=== PATIENT | female | born 1955 | race Caucasian/White ===

== ENCOUNTER → 2017-02-20 | Outpatient (CLI) | payer BC ==
--- NOTE | 2017-02-20 14:37 | MM ---
Reason for exam: screening (asymptomatic). Last mammogram was performed 1 year and 8 months ago. History: Patient is postmenopausal. Physical Findings: A clinical breast exam by your physician is recommended on an annual basis and results should be correlated with mammographic findings. MG Screening Mammo w CAD Bilateral CC and MLO view(s) were taken. Prior study comparison: July 02, 2015, bilateral MG screening mammo w CAD. November 27, 2011, bilateral digital screening mammo w/CAD. The breast tissue is heterogeneously dense. This may lower the sensitivity of mammography. There is no discrete abnormality. No significant changes when compared with prior studies. ASSESSMENT: Negative, BI-RAD 1 RECOMMENDATION: Routine screening mammogram of both breasts in 1 year.
== END | disposition home or self-care (01) ==
LOC: RADMAMWWP 07:57
PROVIDERS: ATTEND Family Medicine
DX: Z12.31 Encounter for screening mammogram for malignant neoplasm of breast (principal)

== ENCOUNTER → 2019-01-07 | Outpatient (CLI) | payer BC ==
[2019-01-07 10:17] VITALS: BP 135/82; PULSE 68; RESP 16; TEMP 98.1; BMI 22.7
--- NOTE | 2019-01-07 12:04 | P.HPOB ---
History of Present Illness H&P Date: 01/07/19 Chief Complaint: Follow-up for 2 Pap smears done in the past 3 months. This is a 63-year-old with an LMP of 2005. The patient states she was sent by Dr. Mccall's office regarding to Pap smears that were done in the last 2 to 3 months. She states she was called back after the 1st one and another Pap smear was done. She was then sent here for follow-up. She is not sure if the Pap smears were inadequate or abnormal. She is without gynecologic complaints and denies any postmenopausal bleeding. Review of Systems The patient's weight has been stable over the last year. Her weight can fluctuate by plus or minus 5 pounds typically. She denies respiratory, cardiac, or G.I. problems. Past Medical History Past Medical History: No Reported History Additional Past Medical History / Comment(s): PAST [employer] HISTORY: She has no history of STDs. History of Any Multi-Drug Resistant Organisms: None Reported Past Surgical History: Section Additional Past Surgical History / Comment(s): times 2. Past Psychological History: No Psychological Hx Reported Smoking Status: Former smoker Additional Drug Use History / Comment(s): Quit smoking in 1983. She has been since 1975. 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 - Past Family History Father Family Medical History: Eye Disorder Additional Family Medical History / Comment(s): Macular degeneration. Mother Additional Family Medical History / Comment(s): Macular degeneration. Son(s) Family Medical History: Cancer Additional Family Medical History / Comment(s): Testicular cancer. Medications and Allergies Home Medications Medication Instructions Recorded Confirmed Type Multivitamin [Multivitamins Adult 1 each PO 01/07/19 History Gummies] Allergies Allergy/AdvReac Type Severity Reaction Status Date / Time No Known Allergies Allergy Unverified 01/07/19 10:13 Exam Vital Signs Temp Pulse Resp BP Pulse Ox 01/07/19 10:14 98.1 F 68 16 135/82 100 Intake and Output 01/06/19 01/07/19 01/07/19 22:59 06:59 14:59 Other: Weight 63.957 kg Height 5'6", weight 141 pounds, BMI 22.8. This is a well-developed well-nourished white female who is alert and oriented times 3 in no acute distress. The patient states she has had a complete physical including breast exam and pelvic exam by AUSTIN Wallace her primary care provider. The patient is declining additional physical exam including the breast exam and pelvic exam today since this was recently done. She states the findings at that time were normal. The patient would like to limit this visit to consultation regarding her recent Pap smear. Additional information: I have obtained the most recent Pap smear done on 11/26/2018 by AUSTIN Wallace at Dr. Mccall's office. The Pap smear was negative. No endocervical component was identified and was considered satisfactory for evaluation. High-risk HPV testing was negative. There was another visit on 11/05/2018 with no results given. The patient states he was asked to return to have the test repeated because of some type of inadequacy of the 1st specimen. IMPRESSION: 1. 63-year-old menopausal female with recent Pap smear done on 11/26/2018. The Pap smear was negative with no endocervical component identified. High-risk HPV was negative. 2. No history of cervical abnormalities per the patient. 3. Physical examination was not performed here by the patient's request since it was recently done at her primary caregiver's office. This appointment will b e considered for discussion only regarding her cervical screening and Pap smear test. PLAN: 1. I have reviewed her recent Pap smear and high-risk HPV testing from 11/26/2018. Because she is menopausal with no previous vaginal deliveries the finding of no endocervical component is not unusual and I do not feel this is a problem. Repeat Pap smear and HRHPV screening in approximate 4 to 5 years was recommended. 2. Screening mammogram will be done today. 3. Osteoporosis prevention was discussed. I have stressed the importance of adequate calcium, vitamin D and regular exercise. Recommended amounts of calcium and vitamin D were also discussed. 4. She was advised to return to her primary care provider, or here, in one year for her annual well woman exam.
--- NOTE | 2019-01-08 11:06 | MM ---
Reason for exam: screening (asymptomatic). Last mammogram was performed 1 year and 11 months ago. History: Patient is postmenopausal. Physical Findings: A clinical breast exam by your physician is recommended on an annual basis and results should be correlated with mammographic findings. MG Screening Mammo w CAD Bilateral CC and MLO view(s) were taken. Prior study comparison: February 20, 2017, bilateral MG screening mammo w CAD. July 02, 2015, bilateral MG screening mammo w CAD. The breast tissue is heterogeneously dense. This may lower the sensitivity of mammography. There is no discrete abnormality. ASSESSMENT: Negative, BI-RAD 1 RECOMMENDATION: Routine screening mammogram of both breasts in 1 year.
== END ==
LOC: WWCWWP 09:38
PROVIDERS: ATTEND Obstetrics & Gynecology
DX: Z12.31 Encounter for screening mammogram for malignant neoplasm of breast (principal)
CPT/HCPCS: 77067

== ENCOUNTER → 2020-03-01 | Outpatient (CLI) | payer BC | END | disposition home or self-care (01) | LOC: LABWHC1 10:56 | PROVIDERS: ATTEND Family Medicine | DX: Z20.828 Contact with and (suspected) exposure to other viral communicable diseases (principal) | CPT/HCPCS: U0003; C9803 ==

== ENCOUNTER → 2021-01-26 | Outpatient (CLI) | payer BC ==
--- NOTE | 2021-01-27 14:24 | MM ---
Reason for exam: screening (asymptomatic). Last mammogram was performed 2 years and 1 month ago. History: Patient is postmenopausal. Physical Findings: A clinical breast exam by your physician is recommended on an annual basis and results should be correlated with mammographic findings. MG Screening Mammo w CAD Bilateral CC and MLO view(s) were taken. Prior study comparison: January 07, 2019, bilateral MG screening mammo w CAD. February 20, 2017, bilateral MG screening mammo w CAD. The breast tissue is heterogeneously dense. This may lower the sensitivity of mammography. There is no discrete abnormality. No significant changes when compared with prior studies. ASSESSMENT: Negative, BI-RAD 1 RECOMMENDATION: Routine screening mammogram of both breasts in 1 year.
== END | disposition home or self-care (01) ==
LOC: RADMAMWWP 11:59
PROVIDERS: ATTEND Family Medicine
DX: Z12.31 Encounter for screening mammogram for malignant neoplasm of breast (principal)
CPT/HCPCS: 77067

== ENCOUNTER → 2022-02-27 | Outpatient (CLI) | payer MEDICARE ==
--- NOTE | 2022-02-27 15:42 | BD ---
EXAMINATION TYPE: Axial Bone Density DATE OF EXAM: 02/27/2022 COMPARISON: NONE CLINICAL HISTORY: 66 years year old Female. ICD-10 CODE: M85.9 DISORDER OF BONE Height: 5 FT 5 1/4 IN Weight: 143 FRAX RISK QUESTIONS: Alcohol (3 or more units per day): NO Family History (Parent hip fracture): NO Glucocorticoids (More than 3mos): NO (Ex: prednisone, prednisolone, methylprednisolone, dexamethasone, and hydrocortisone). History of Fracture in Adulthood: NO Secondary Osteoporosis: 1. Type 1 Diabetes: NO 2. Hyperthyroidism: NO 3. Menopause before 45: NO 4. Malnutrition: NO 5. Chronic liver disease: NO Rheumatoid Arthritis: NO Current Tobacco Use: NO RISK FACTORS HISTORY OF: Surgery to Spine/Hip(right/left)/Wrist (right/left): NO Family History of Osteoporosis: YES Active: YES Diet low in dairy products/other sources of calcium: NO Postmenopausal woman: YES Take estrogen and/or progesterone medications: NO Lost more than 2 inches in height since high school: NO Frequent falls: NO Poor Health: GOOD Hyperparathyroidism: NO Adrenal Insufficiency: NO MEDICATIONS: Additional Medications: NO Additional History: EXAM MEASUREMENTS: Bone mineral densitometry was performed using the [employer] System. Bone mineral density as measured about the Lumbar spine is: ----- L1-L4(G/cm2): 1.050 T Score Values are as follows: ----- L1: -1.6 ----- L2: -2.1 ----- L3: -1.5 ----- L4: 0.4 ----- L1-L4: -1.1 Bone mineral density has: DECREASED -19.0 % since study of: 2006 Bone mineral density about the R hip (g/cm2): 0.769 Bone mineral density about the L hip (g/cm2): 0.763 T Score values are as follows: -----R Neck: -1.9 -----L Neck: -2.0 -----R Total: -0.9 -----L Total: -1.2 Bone mineral density has: DECREASED -16.7 % since study of: 2006 FRAX%s: The graph provided illustrates a 6.3 % chance for a major osteoporotic fx and a 1.2 % chance for the hips probability for fx in 10 years time. IMPRESSION: Osteopenia (T Score between -2.5 and -1). There is slightly increased risk of fracture and the patient may be considered for treatment. Re-Screen 2-5 years. NOTE: T-SCORE=SD OF THE YOUNG ADULT MEAN.
--- NOTE | 2022-02-28 10:32 | MM ---
Reason for Exam: Screening (asymptomatic). Last mammogram was performed 1 year(s) and 1 month(s) ago. Patient History: Menarche at age 12. First Full-Term at age 26. Postmenopausal. Risk Values: Shalonda 5 year model risk: 2.0%. NCI Lifetime model risk: 7.6%. Prior Study Comparison: 02/20/2017 Bilateral Screening Mammogram, [facility]. 01/07/2019 Bilateral Screening Mammogram, [facility]. 01/26/2021 Bilateral Screening Mammogram, [facility]. Tissue Density: The breast tissue is heterogeneously dense. This may lower the sensitivity of mammography. Findings: Analyzed By CAD. There is distortion with spiculated borders in the upper right breast mediolateral view. This is not clearly identified previously. Additional workup with compression mediolateral oblique view and standard right mediolateral view is recommended. Left breast: No suspicious groups of microcalcifications, spiculated or lobular masses, architectural distortion or other secondary signs of malignancy are mammographically apparent. Overall Assessment: Incomplete: need additional imaging evaluation, BI-RAD 0 Management: Diagnostic Mammogram of the right breast. A negative mammogram report should not preclude additional follow up of suspicious palpable abnormalities. Patient should continue monthly self breast exam. A clinical breast exam by your physician is recommended on an annual basis and results should be correlated with mammographic findings. Electronically signed and approved by: Shon Singletary D.O. Radiologis
== END | disposition home or self-care (01) ==
LOC: RADMAMWWP 13:42
PROVIDERS: ATTEND Family Medicine
DX: Z12.31 Encounter for screening mammogram for malignant neoplasm of breast (principal); M85.89 Other specified disorders of bone density and structure, multiple sites
CPT/HCPCS: 77063; 77067; 77080

== ENCOUNTER → 2022-03-01 | Outpatient (CLI) | payer MEDICARE ==
--- NOTE | 2022-03-01 10:16 | MM ---
Reason for Exam: Additional evaluation requested from abnormal screening. Last screening mammogram was performed less than 1 month ago. Patient History: Menarche at age 12. First Full-Term at age 26. Postmenopausal. Patient has history of breast feeding. Risk Values: Shalonda 5 year model risk: 2.0%. NCI Lifetime model risk: 7.6%. Prior Study Comparison: 07/02/2015 Bilateral Screening Mammogram, [facility]. 02/20/2017 Bilateral Screening Mammogram, [facility]. 01/07/2019 Bilateral Screening Mammogram, [facility]. 01/26/2021 Bilateral Screening Mammogram, [facility]. 02/27/2022 Bilateral MG 3D screening mammo w/cad, [facility]. Tissue Density: Right: The breast tissue is heterogeneously dense. This may lower the sensitivity of mammography. Findings: Analyzed By CAD. The superior asymmetric density disperses on additional views. Findings compatible with superimposition shadow. Overall Assessment: Benign, BI-RAD 2 Management: Screening Mammogram of both breasts in 1 year. 1. Patient should continue monthly self breast exams. 2. A clinical breast exam by your physician is recommended on an annual basis. 3. This exam should not preclude additional follow-up of suspicious palpable abnormalities. Results were given to the patient verbally at the time of exam. Electronically signed and approved by: Nati Mckeon M.D. Radiologist
== END | disposition home or self-care (01) ==
LOC: RADMAMWWP 08:57
PROVIDERS: ATTEND Family Medicine
DX: R92.8 Other abnormal and inconclusive findings on diagnostic imaging of breast (principal); Z78.0 Asymptomatic menopausal state
CPT/HCPCS: 77065; G0279; 77061

== ENCOUNTER → 2023-03-01 | Outpatient (CLI) | payer MEDICARE ==
--- NOTE | 2023-03-04 15:58 | MM ---
Reason for Exam: Screening (asymptomatic). Last screening mammogram was performed 12 month(s) ago. Patient History: Menarche at age 12. First Full-Term at age 26. Postmenopausal. Patient has history of breast feeding. Risk Values: Shalonda 5 year model risk: 2.0%. NCI Lifetime model risk: 7.3%. Prior Study Comparison: 01/26/2021 Bilateral Screening Mammogram, [facility]. 02/27/2022 Bilateral MG 3D screening mammo w/cad, [facility]. 03/01/2022 Right MG 3D work up w/cad RT, [facility]. Tissue Density: The breast tissue is heterogeneously dense. This may lower the sensitivity of mammography. Findings: Analyzed By CAD. Pattern appears symmetrical and stable. No significant interval change is evident. Couple of benign calcifications are within the left breast. No suspicious groups of microcalcifications, spiculated or lobular masses, architectural distortion or other secondary signs of malignancy are mammographically apparent. Overall Assessment: Benign, BI-RAD 2 Management: Screening Mammogram of both breasts in 1 year. A negative mammogram report should not preclude additional follow up of suspicious palpable abnormalities. Patient should continue monthly self breast exam. A clinical breast exam by your physician is recommended on an annual basis and results should be correlated with mammographic findings. Electronically signed and approved by: Shon Singletary D.O. Radiologis
== END | disposition home or self-care (01) ==
LOC: RADMAMWWP 14:28
PROVIDERS: ATTEND Family Medicine
DX: Z12.31 Encounter for screening mammogram for malignant neoplasm of breast (principal); Z78.0 Asymptomatic menopausal state
CPT/HCPCS: 77063; 77067

== ENCOUNTER → 2024-04-30 | Outpatient (CLI) | payer MEDICARE ==
--- NOTE | 2024-05-01 13:20 | MM ---
Reason for Exam: Screening (asymptomatic). Last mammogram was performed 1 year(s) and 2 month(s) ago. Patient History: Menarche at age 12. First Full-Term at age 26. Postmenopausal. Patient has history of breast feeding. Risk Values: Shalonda 5 year model risk: 2.1%. NCI Lifetime model risk: 7.0%. Prior Study Comparison: 02/27/2022 Bilateral MG 3D screening mammo w/cad, [facility]. 03/01/2022 Right MG 3D work up w/cad RT, [facility]. 03/01/2023 Bilateral MG screening mammo w CAD, [facility]. Tissue Density: The breasts are heterogeneously dense, which may obscure small masses. Analyzed By CAD. Overall Assessment: Negative, BI-RAD 1 Management: Screening Mammogram of both breasts in 1 year. Electronically signed and approved by: Harris Crow DO
== END | disposition home or self-care (01) ==
LOC: RADMAMWWP 08:46
PROVIDERS: ATTEND Family Medicine
DX: Z12.31 Encounter for screening mammogram for malignant neoplasm of breast
CPT/HCPCS: 77063; 77067